=== PATIENT | female | born 1990 | race Hispanic/Latino ===

== ENCOUNTER 2017-04-12 21:18 | Emergency (ER) | payer SELFPAY ==
[2017-04-12] MEDS ORDERED: ACETAMINOPHEN EXTRA STRENGTH 500 MG TABLET ONE (21:56)
[2017-04-12] MEDS ORDERED: DEXAMETHASONE SOD PHOSPHATE 10MG/ML 1ML VIAL ONE (22:52)
[2017-04-12] MEDS ORDERED: KETOROLAC TROMETHAMINE 60 MG/2 ML VIAL ONE (22:53)
== END 2017-04-12 23:20 | disposition home or self-care (01) ==
LOC: EDH 21:18
DX: J03.90 Acute tonsillitis, unspecified (principal); R59.9 Enlarged lymph nodes, unspecified; Z98.51 Tubal ligation status; Z90.49 Acquired absence of other specified parts of digestive tract; Z72.0 Tobacco use
CPT/HCPCS: 81025; 87880; 96372 ×2; 99284; J1100; J1885

== ENCOUNTER 2019-08-10 17:40 | Emergency (ER) | payer OTHER, SELFPAY | END 2019-08-10 20:08 | disposition home or self-care (01) | LOC: EDH 17:40 | DX: B34.9 Viral infection, unspecified (principal); Z20.828 Contact with and (suspected) exposure to other viral communicable diseases; Z72.0 Tobacco use; Z90.49 Acquired absence of other specified parts of digestive tract ==